=== PATIENT | female | born 1950 | race Two or more races ===

== ENCOUNTER 2024-10-13 11:00 | Day surgery (SDC) | payer OTHER, SELFPAY ==
--- NOTE | 2024-10-11 11:24 | EKG_ITS ---
[facility] Test Date: 2024-10-11 Pat Name: CANELO ALEJO Department: Room: - Gender: Female Software Product Manager: JENNIFER : 1950 Requested By: Janeth Johnson Order Number: [id number] Reading MD: Janeth Johnson Measurements Intervals [place] Rate: 62 P: 67 OR: 205 QRS: 60 QRSD: 85 T: 46 QT: 381 QTc: 388 Interpretive Statements SINUS RHYTHM NONSPECIFIC T-WAVE ABNORMALITY No previous ECG available for comparison /[id number]
[2024-10-11 12:23] LABS: HCG,Qualitative Serum Negative
[2024-10-11 12:34] LABS: INR 1.0 (0.9-1.3); Partial Thromboplastin Time 34.5 Seconds (22.0-36.0); Prothrombin Time 11.4 Seconds (9.0-12.2)
[2024-10-11 12:35] LABS: Alanine Aminotransferase 10 U/L (10-49); Albumin, Serum 4.2 gm/dL (3.4-4.8); Albumin/Globulin Ratio 1.6 (1.2-2.2); Alkaline Phosphatase 100 U/L (46-116); Anion Gap 8 (7-16); Aspartate Amino Transferase 20 U/L (0-34); BUN/Creatinine Ratio 21 Ratio (12-20); Bilirubin,Total 0.8 mg/dL (0.3-1.2); Blood Urea Nitrogen 17 mg/dL (9-23); Calcium 9.3 mg/dL (8.3-10.6); Calcium (Corrected) 9.3 mg/dL (8.5-10.1); Carbon Dioxide 25.2 mMol/L (20.0-31.0); Chloride 111 mMol/L (98-107); Creatinine (Component) 0.8 mg/dL (0.6-1.3); Globulin 2.6 gm/dL (2.3-3.5); Glucose 99 mg/dL (74-106); Osmolality,Calculated 288 (275-295); Potassium 3.6 mMol/L (3.4-5.1); Sodium 144 mMol/L (136-145); Total Protein 6.8 gm/dL (5.7-8.2); eGFR > 60 See Note
[2024-10-12 14:39] VITALS: BMI 39.4
[2024-10-13 11:34] VITALS: PULSE 70; BMI 25.5
[2024-10-13 11:35] VITALS: BP 114/74; PULSE 70; RESP 14; TEMP 36.1; O2SAT 96
[2024-10-13] MEDS: RINGERS LACTATED 1000 ML 1,000 ML 20 ML IV (11:40)
[2024-10-13 13:35] VITALS: BP 88/54; PULSE 62; RESP 17; TEMP 37; O2SAT 92
[2024-10-13 13:45] VITALS: BP 96/60; PULSE 60; RESP 16; O2SAT 93
[2024-10-13 13:55] VITALS: BP 103/62; PULSE 60; RESP 18; O2SAT 94
[2024-10-13 14:05] VITALS: BP 124/70; PULSE 68; RESP 17; O2SAT 97
== END 2024-10-13 14:25 | disposition home or self-care (01) ==
PROVIDERS: PCP Internal Medicine; Referring Provider Specialist; Visit Provider Specialist
PROC: 0DBE8ZX Excision of Large Intestine, Via Natural or Artificial Opening Endoscopic, Diagnostic (ICD-10-PCS; CPT 45380; principal; 2024-10-13 11:15)
DX: K63.89 Other specified diseases of intestine (principal); K64.9 Unspecified hemorrhoids; K57.30 Diverticulosis of large intestine without perforation or abscess without bleeding; Z01.810 Encounter for preprocedural cardiovascular examination; R94.31 Abnormal electrocardiogram [ECG] [EKG]
CPT/HCPCS: 45380; 36415; 80053; 84703; 85610; 85730; 93005; J7120